=== PATIENT | male | born 1970 | race Caucasian/White ===

== ENCOUNTER 2023-11-15 11:46 | Outpatient (CLI) | payer OTHER, SELFPAY ==
[2023-11-15 12:05] LABS: Basophils Absolute Auto 0.04 K/mm3 (0.00-0.10); Basophils Percent Auto 0.4 % (0.0-1.0); Eosinophils Absolute Auto 0.15 K/mm3 (0.02-0.50); Eosinophils Percent Auto 1.6 % (1.0-6.0); Hematocrit 48.7 % (40.0-54.0); Hemoglobin 17.2 g/dL (14.0-18.0); Immature Granulocyte Absolute 0.05 K/mm3 (0.00-0.00); Immature Granulocyte Percent A 0.5 % (0.0-0.0); Lymphocytes Absolute Auto 3.19 K/mm3 (1.10-4.50); Lymphocytes Percent Auto 33.3 % (18.0-42.0); Mean Corpuscular HGB Conc 35.3 g/dL (32.0-36.0); Mean Corpuscular Hemoglobin 30.9 pg (27.0-31.0); Mean Corpuscular Volume 87.4 fL (78.0-102.0); Mean Platelet Volume 9.2 fl (8.7-11.0); Monocytes Absolute Auto 0.52 K/mm3 (0.10-0.90); Monocytes Percent Auto 5.4 % (2.0-11.0); Neutrophils Absolute Auto 5.6 K/mm3 (1.7-7.2); Neutrophils Percent Auto 58.8 % (50.0-70.0); Platelet Count Result 240 K/mm3 (150-420); Red Blood Count 5.57 M/mm3 (4.70-6.10); Red Cell Distribution Width 12.9 % (11.6-14.4); White Blood Count 9.6 K/mm3 (4.8-10.8)
[2023-11-15 12:10] LABS: Appearance Urine Clear (Clear); Bilirubin Urine Negative (Negative); Blood Urine Negative (Negative); Color Urine Yellow (Yellow); Glucose Urine UA Negative (Negative); Ketones Urine Negative (Negative); Leukocyte Esterase Ur Negative (Negative); Nitrate Urine Negative (Negative); Protein Urine 1+ (Negative); Specific Grav Ur >= 1.030 (1.010-1.020); Urobilinogen Urine 0.2 mg/dL (0.2-1.0)
[2023-11-15 12:16] LABS: Add Urine Microscopic? YES; RBC Urine None seen /hpf (0-2); WBC Urine None seen /hpf (0-3)
[2023-11-15 12:17] LABS: Bacteria Urine Rare /hpf
[2023-11-15 12:54] LABS: Albumin Level 3.5 g/dL (3.4-5.0); Alkaline Phosphatase 72 U/L (46-116); Anion Gap 10 mmol/L (8-16); Blood Urea Nitrogen 16 mg/dL (7-18); Calcium 7.5 mg/dL (8.5-10.1); Carbon Dioxide 27 mmol/L (21-32); Chloride 91 mmol/L (98-108); Cholesterol 437 mg/dL (0-200); Estimated Glomerular Filt Rate > 60; Glucose 282 mg/dL (70-99); HDL Direct 33 mg/dL (40-60); Osmolality Calculated 277 mOsm/kg (285-295); Potassium 4.4 mmol/L (3.5-5.1); Prostate Specific Antigen 1.1 ng/mL (< OR = 4.0); Sodium 128 mmol/L (136-145); Total Protein 7.3 g/dL (6.4-8.2)
[2023-11-15 13:35] LABS: Hemoglobin A1C 8.6 % (<5.7)
[2023-11-15 14:44] LABS: LDL Cholesterol Calculated 204 mg/dL (<130)
[2023-11-15 14:45] LABS: GGT 66 U/L (15-85)
[2023-11-15 14:48] LABS: Triglycerides > 1000 mg/dL (0-150)
[2023-11-16 11:04] LABS: Alanine Aminotransferase 26 U/L (16-63); Aspartate Amino Transferase 22 U/L (15-37)
== END 2023-11-15 11:47 | disposition home or self-care (01) ==
LOC: CHSLAB 11:53
PROVIDERS: PCP Internal Medicine; Visit Provider Internal Medicine
DX: E78.2 Mixed hyperlipidemia (principal); I10 Essential (primary) hypertension; E11.65 Type 2 diabetes mellitus with hyperglycemia; F10.280 Alcohol dependence with alcohol-induced anxiety disorder; Z12.5 Encounter for screening for malignant neoplasm of prostate
CPT/HCPCS: 36415; 80053; 80061; 81001; 82977; 83036; 84153; 85025; G0103

== ENCOUNTER 2025-05-01 02:47 | Day surgery (SDC) | payer BC, SELFPAY ==
[2025-04-09 10:43] VITALS: BMI 30.5
--- OUTSIDE RECORDS SUMMARY | 2025-05-01 02:50 | XMS_ITS | Clinical Summary ---
Author Organization [facility] Address Formerly [facility] [place] [address] Care Team Providers Care Farmworker Cranberry Name Role Phone Kaveh Zavala MD Primary Care Provider [phone] Allergies No known active allergies Medications metFORMIN 1000 MG tablet Take 1,000 mg by mouth 2 (two) times daily with meals. Active atorvastatin 80 MG tablet Take 80 mg by mouth nightly at bedtime. Active Leona-3 Fatty Acids (FISH OIL) 500 MG capsule Take 500 mg by mouth daily. Active Active Problems Problem Noted Date Diagnosed Date Hypertriglyceridemia 07/06/2021 Type 2 diabetes mellitus wit hout complication, unspecified whether custodial insulin use ([facility]) 07/06/2021 Pancreatitis ([facility]) 07/06/2021 Acute pancreatitis ([facility]) 07/04/2021 Hypertension 07/04/2021 Resolved Problems Problem Noted Date Diagnosed Date Resolved Date Alcohol use 07/04/2021 07/27/2022 Family History Medical History Relation Comments Cancer Father Diabetes Mother Relation Status Comments Father Mother Social History Tobacco Use Types Packs/Day Years Used Date Smoking Tobacco: Every Day Cigarettes Smokeless Tobacco: Never Alcohol Use Standard Drinks/Week Comments Yes 40 (1 standard drink = 0.6 oz pu re alcohol) per wk Sex and Gender Information Value Date Recorded Sex Assigned at Not on file 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 Gender Identity Not on file Sexual Orientation Not on file Last Filed Vital Signs Vital Sign Reading Time Taken Comments Blood Pressure 137/74 07/11/2021 9:30 AM CDT Pulse 70 07/11/2021 5:15 AM CDT Temperature 36.3 C (97.4 F) 07/11/2021 5:15 AM CDT Respiratory Rate 25 07/11/2021 5:15 AM CDT Oxygen Saturation 100% 07/11/2021 9:30 AM CDT Inhaled Oxygen Concentration - - Weight 101.6 kg (224 lb) 07/11/2021 5:15 AM CDT Height 182.9 cm (6') 07/11/2021 5:15 AM CDT Body Mass Index 30.38 07/11/2021 5:15 AM CDT Plan of Treatment Health Maintenance Due Date Last Done Comments Colorectal Cancer Screening Colonoscopy (10 Years) 1972 Kidney Health Evaluation 1972 Hemoglobin A1C 1972 Annual Physical 1975 Diabetes: Retinopathy Eye Exam 1990 Hepatitis C 1990 DTaP, Tdap and Td Vaccines (1 - Tdap) 1991 Hepatitis B Vaccines (1 of 3 - 19+ 3-dose series) 1991 Pneumococcal Vaccine: 50+ Years (1 of 2 - PCV) 1991 Lipid Panel 07/06/2022 07/06/2021, 06/25, 07/05/2021, Additional history exists Zoster Vaccines (1 of 2) 2022 COVID-19 Vaccine ( season) 2024 Meningococcal B Vaccine Aged Out No l onger eligible based on patient's age to complete this topic Meningococcal Vaccine Aged Out No angelika carolina eligible based on patient's age to complete this topic RSV Immunizations Under 20 Months Aged Out No longer eligible based on patient's age to complete this topic Goals Goal Patient Goal Type Associated Problems Recent Progress Patient-Stated? 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 RESULT MAY BE AFFECTED. THE NATIONAL LIPID ASSOCIATION AND THE NATIONAL CHOLESTEROL EDUCATION PROGRAM (NCEP) HAVE SET THE FOLLOWING GUIDELINES FOR TOTAL CHOLESTEROL IN ADULTS AGES 18 AND UP. DESIRABLE: <200 BORDERLINE HIGH: 200-239 HIGH: > OR = 240 TRIGLYCERIDES 1,940(H) <150 MG/DL 07/06/2021 8:00 AM CDT [facility] Comment: MILD ICTERUS. RESULT MAY BE AFFECTED. THE NATIONAL LIPID ASSOCIATION AND THE NATIONAL CHOLESTEROL EDUCATION PROGAM (NCEP) HAVE SET THE FOLLOWING GUIDELINES FOR TRIGLYCERIDES IN ADULTS AGES 18 AND UP. NORMAL: <150 BORDERLINE HIGH: 150 TO 199 HIGH: 200 TO 499 VERY HIGH: >499 HDL 14(L) >39 MG/DL 07/06/2021 8:00 AM CDT [facility] Comment: THE NATIONAL LIPID ASSOCIATION AND THE NATIONAL CHOLESTEROL EDUCATION PROGAM (NCEP) HAVE SET THE FOLLOWING GUIDELINES FOR HDL CHOLESTEROL IN ADULTS AGES 18 AND UP. MALES: >39 FEMALES: >49 LDL (CALCULATED) TRIGLYCERIDES >400 MG/DL, SEE DIRECT LDL REPORT <100 MG/DL 07/06/2021 8:00 AM CDT [facility] Comment: THE NATIONAL LIPID ASSOCIATION AND THE NATIONAL CHOLESTEROL EDUCATION PROGAM (NCEP) HAVE SET THE FOLLOWING GUIDELINES FOR LDL CHOLESTEROL IN ADULTS AGES 18 AND UP. DESIRABLE: <100 ABOVE DESIRABLE: 100 TO 129 BORDERLINE HIGH: 130 TO 159 HIGH: 160 TO 189 VERY HIGH: >189 VLDL CALCULATION CALCULATION NOT VALID, TRIG >400 MG/DL 07/06/2021 8:00 AM CDT [facility] Comment:REFERENCE RANGE NOT ESTABLISHED CHOL/HDL RATIO 24.1 07/06/2021 8:00 AM CDT [facility] Comment:REFERENCE RANGE NOT ESTABLISHED LDL/HDL CALCULATION NOT VALID, TRIG >400 07/06/2021 8:00 AM T [facility] Comment:REFERENCE RANGE NOT ESTABLISHED NON HDL CHOLESTEROL 324 MG/DL 07/06/2021 8:00 AM T [facility] Comment:REFERENCE RANGE NOT ESTABLISHED 07/06/2021 5:15 AM CDT Lili Davidson NP LABORATORY Final Result [facility] [address] [place] [address], from Last 3 Months or Most Recently Relevant to Health Maintenance Insurance [facility] Advance Directives * Full Code (Latest Code Status on File) Date Activated Date Inactivated Comments 07/07/2021 1:04 PM 07/10/2021 1:20 PM * Full Code Date Activated Date Inactivated Comments 07/04/2021 2:49 AM 07/06/2021 8:00 PM Care Teams Farmworker Cranberry Relationship Specialty Start Date End Date Kaveh Zavala MD [address] [place] [phone] PCP - General FAMILY PRACTICE 07/03/21
--- OUTSIDE RECORDS SUMMARY | 2025-05-01 02:50 | XMS_ITS | Encounter Summary ---
Author Organization [facility] Address [address] [place] [address] Care Team Providers Care Electrical Helper Name Role Phone Kaveh Zavala MD Primary Care Provider [phone] Encounter Details Date Type Department Care Team (Late st Contact Info) Description 07/11/2021 Hospital Follow-up Call [facility] [address] [place] [address] Kaye Vergara RN Social History Tobacco Use Types Packs/Day Years Used Date Smoking Tobacco: Every Day Cigarettes Smokeless Tobacco: Never Alcohol Use Standard Drinks/Week Comments Yes 40 (1 standard drink = 0.6 oz pu re alcohol) per wk Sex and Gender Information Value Date Recorded Sex Assigned at Not on file 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 No / Unsure 07/11/2021 5:12 AM CDT documented as of this encounter Functional Status * RETIRED Are you deaf or do you have serious difficulty hearing Answer Date of Assessment Author Status No 07/06/2021 9:06 PM CDT Activ e * RETIRED Are you blind or do you have serious difficulty seeing, even when wearing glasses? Answer Date of Assessment Author Status No 07/06/2021 9:06 PM CDT Activ e * Do you have serious difficulty walking or climbing stairs? Answer Date of Assessment Author Status No 07/06/2021 9:06 PM CDT Amanda Warner RN Active * Do you have difficulty dressing or bathing? Answer Date of Assessment Author Status No 07/06/2021 9:06 PM Amanda Roblero RN Active * Because of a physical, mental, or emotional condition, do you have difficulty doing errands alone such as visiting a doctor's office or shopping? Answer Date of Assessment Author Status No 07/06/2021 9:06 PM Amanda Roblero RN Active * Calculated C-SSRS Risk Score (Lifetime/Recent) Answer Date of Assessment Author Status No Risk Indicated 07/11/2021 5:13 AM Pooja Laurent RN Active * Clinch Suicide Severity Rating Scale (Screener/Recent Self-Report) Question Answer Date of Assessment Author Status 1. Wish to be (Past 1 Month) No 07/11/2021 5:13 AM Magda Laurent RN Acti ve 2. Non-Specific Active Suicidal Thoughts (Past 1 Month) No 07/11/2021 5:13 AM Magda Laurent RN Acti ve 6. Suicidal Behavior (Lifetime) No 07/11/2021 5:13 AM Magda Laurent RN Acti ve documented as of this encounter Mental Status * Because of a physical, mental, or emotional condition, do you have serious difficulty concentrating, remembering, or making decisions? Answer Entry Date Author Status No 07/06/2021 9:06 PM Amanda Roblero RN Active documented in this encounter Plan of Treatment Not on file documented as of this encounter Goals Goal Patient Goal Type Associated Problems Recent Progress Patient-Stated? Author Safety Patient/family will have appropriate support at home upon discharge General No Luciana Padron RN documented as of this encounter Visit Diagnoses Not on filedocumented in this encounter Care Teams Electrical Helper Relationship Specialty Start Date End Date Kaveh Zavala MD [address] [place] [phone] PCP - General FAMILY PRACTICE 07/03/21 documented as of this encounter
[2025-05-01 08:10] VITALS: BP 146/92; PULSE 75; RESP 18; TEMP 36.8; O2SAT 98
[2025-05-01] MEDS: LACTATED RINGERS 1,000 ML 150 ML IV CONT (08:31)
--- NOTE | 2025-05-01 08:58 | P.PNAN_ITS ---
Anes - Initial Pre Proc Eval Procedure: Operation Date: 05/01/25 09:30 Proposed Procedures p Screening Colonoscopy - Davin Vazquez DO Date/Time: 05/01/25 08:58 Surgeon: Davin Vazquez DO Pre Op Diagnosis: Screening for malignant neoplasm of colon Patient Data Age: 54 Gender: M Height: 1.83 m Weight: 104.7 kg Last Vital Signs Temp 98.2 F 05/01/25 08:10 Pulse 75 05/01/25 08:10 Resp 18 05/01/25 08:10 BP 146/92 H 05/01/25 08:10 Pulse Ox 98 05/01/25 08:10 O2 Del Method Room Air 05/01/25 08:10 Allergies Allergy/AdvReac Type Severity Reaction Status Date / Time No Known Allergies Allergy Verified 05/01/25 08:09 Home Medications ?Medication ?Instructions ?Recorded ?Confirmed ?Type amlodipine 5 mg tablet 5 mg PO DAILY 04/09/25 05/01/25 History atorvastatin 80 mg tablet 80 mg PO DAILY 04/09/25 04/09/25 History fenofibrate 160 mg tablet 160 mg PO DAILY 04/09/25 05/01/25 History folic acid 1 mg tablet 1 mg PO DAILY 04/09/25 05/01/25 History glimepiride 4 mg tablet 4 mg PO DAILY 04/09/25 04/09/25 History metformin 500 mg tablet,extended 2,000 mg PO DAILY 04/09/25 04/09/25 History release 24 hr Laboratory Tests 05/01/25 08:28 POC Capillary Glucose 193 H mg/dl (65-105) Patient hx anesthesia problems: none Family hx anesthesia problems: none Results Review: All pre-operative results and documents have been reviewed as part of the pre- operative evaluation. [facility] Social History Social History Years smoked: 20 Smoking status: Current every day smoker Tobacco type: cigarettes Alcohol intake: current Drinks per week: 5 Substance use: current Substance use type: marijuana Other substance usage details: on occasion Last use: 2 weeks ago from 04/09 Living arrangements: with family Spiritual care concerns: No Anes - Eval Final PreProcedure Day of Procedure 05/01/25 08:58 Patient weight: obese Lungs: normal air movement Airway: Mallampati scale class II Neurological: alert and oriented Last oral intake: >/= 8 hours ASA classification: III Emergent: no Anesthetic plan: proceed Anesthesia type and monitoring: general GIVS and standard monitoring Results Review: All pre-operative results and documents have been reviewed as part of the pre- operative evaluation. HTN, hyperlipidemia, DM fsbs 193, obesity, smoker 1 ppd and did smoke this am approx 7 am (2 cigs). 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 Informed Consent: The patient's anesthetic plan and its attendant risks and benefits were discussed with the patient/family/POA. Questions were solicited and answers provided to the satisfaction of the patient/family/POA.
--- NOTE | 2025-05-01 09:38 | PM.IMHP ---
H&P: HPI History of Present Illness Date/Time: 05/01/25 09:38 Chief Complaint: screening for colorectal cancer Narrative: this is a 54-year-old man who presents for his 1st colonoscopy. He denies any hematochezia or melena. He denies any family history of colon cancer. Review of Systems Review of Systems: All systems reviewed & are unremarkable except as noted in HPI and below Constitutional: Constitutional: Denies chills, Denies fever(s), Denies headache(s) and Denies weight loss Eyes: Eyes: Denies change in vision ENT: Denies dizziness, Denies headache(s), Denies neck mass and Denies throat swelling Cardiovascular: Cardiovascular: Denies chest pain, Denies lightheadedness and Denies dyspnea Respiratory: Respiratory: Denies cough, Denies dyspnea and Denies wheezing Gastrointestinal: Gastrointestinal: Denies abdominal pain, Denies change in bowel habits, Denies nausea and Denies vomiting Genitourinary: Genitourinary: Denies hematuria and Denies dysuria Musculoskeletal: Musculoskeletal: Reports as per HPI Integumentary/Breasts: Skin/Breast: Reports as per HPI Neurologic: Denies dizziness and Denies headache(s) Allergic/Immunologic: Allergic/Immunologic: Denies throat swelling and Denies wheezing [facility] Social History Social History Years smoked: 20 Smoking status: Current every day smoker Tobacco type: cigarettes Alcohol intake: current Drinks per week: 5 Substance use: current Substance use type: marijuana Other substance usage details: on occasion Last use: 2 weeks ago from 04/09 Living arrangements: with family Spiritual care concerns: No Meds Home Medications and Allergies Home Medications ?Medication ?Instructions ?Recorded ?Confirmed ?Type amlodipine 5 mg tablet 5 mg PO DAILY 04/09/25 05/01/25 History atorvastatin 80 mg tablet 80 mg PO DAILY 04/09/25 04/09/25 History fenofibrate 160 mg tablet 160 mg PO DAILY 04/09/25 05/01/25 History folic acid 1 mg tablet 1 mg PO DAILY 04/09/25 05/01/25 History glimepiride 4 mg tablet 4 mg PO DAILY 04/09/25 04/09/25 History metformin 500 mg tablet,extended 2,000 mg PO DAILY 04/09/25 04/09/25 History release 24 hr Allergies Allergy/AdvReac Type Severity Reaction Status Date / Time No Known Allergies Allergy Verified 05/01/25 08:09 Vital Signs Vital Signs - 24 hr 05/01/25 08:10 Temperature 98.2 F Pulse Rate 75 Respiratory Rate 18 Blood Pressure 146/92 H Pulse Oximetry 98 Oxygen Delivery Room Air Exam Const: General: no acute distress and alert Orientation/consciousness: patient oriented x3 HENMT: Head: normocephalic and atraumatic Ears: hearing grossly normal bilaterally Face/Nose/Sinus: Normal nares present Mouth: Yes Normal oral and palatal mucosa present Eyes: Periorbital: periorbital findings normal Sclera: sclerae normal EOM: EOMs intact bilaterally Neck: Neck: normal visual inspection, no lymphadenopathy and trachea midline Chest: Chest palpation & inspection: normal inspection of the chest Resp: Effort & Inspection: normal respiratory effort Auscultation: clear to auscultation bilaterally Cardio: Jugular venous distension: no JVD Rate: regular rate Rhythm: regular rhythm Heart sounds: S1 normal heart sound present and S2 normal heart sound present Peripheral pulses: Peripheral pulses 2+ throughout GI: Inspection: normal to inspection GI Palp: Yes Soft to palpation, No Tenderness to palpation present (GI), No Guarding due to palpation present (GI) and No Rebound tenderness present Percussion: Yes normal to percussion Auscultation: normal bowel sounds : General: Yes no CVA tenderness Back/Spine/Pelvis: Back: no CVA tenderness Neuro: General: patient oriented x3, no focal motor deficits and CN's II-XI intact bilaterally Cognition (Neuro): normal cognition Speech: normal speech Motor exam (neuro): 5/5 motor strength present throughout Extrem: General: capillary refill normal and no clubbing, cyanosis or edema Assessment and Plan Assessment and plan (1) Screening for colorectal cancer: Code(s): Z12.11 - Encounter for screening for malignant neoplasm of colon; Z12.12 - Encounter for screening for malignant neoplasm of rectum Status: Acute Assessment and Plan: I have recommended colonoscopy. I have discussed the procedure, risks, benefits, and alternatives. Questions were answered. Patient is agreeable to proceed.
--- NOTE | 2025-05-01 09:57 | S_PTH ---
PATIENT: Kai Chu LOC: [facility] U#:[id number] AGE/SX: 54/M ROOM: RE05/01/[address]: Davin Vazquez DO : 1970 BED: DIS: 05/01/2025 SPEC #: [id number] RECD: 05/01/25 10:45 STATUS: SUNNY REQ #: [id number] IRIS: 05/01/25 09:[address]: Davin Vazquez DEPT: [facility] Surgical RECD BY: Emerald Vidal ENTERED: 05/01/25 10:46 SP TYPE: Surgical OTHR DR: Odilon Guerra MD Tissues: A - Rectal Polyp Procedures: Hematoxylin and Eosin Stain Gross and Microscopic Level 4
[2025-05-01 10:00] VITALS: BP 110/71; PULSE 68; RESP 20; O2SAT 95
[2025-05-01 10:10] VITALS: BP 123/85; PULSE 65; RESP 20; O2SAT 98
[2025-05-01 10:20] VITALS: BP 127/89; PULSE 61; RESP 15; O2SAT 97
== END 2025-05-01 10:36 | disposition home or self-care (01) ==
PROVIDERS: PCP Internal Medicine; Visit Provider Surgery
PROC: 0DJD8ZZ Inspection of Lower Intestinal Tract, Via Natural or Artificial Opening Endoscopic (ICD-10-PCS; CPT 45378; principal; 2025-05-01 09:30)
DX: Z12.11 Encounter for screening for malignant neoplasm of colon (principal); D12.8 Benign neoplasm of rectum; K57.30 Diverticulosis of large intestine without perforation or abscess without bleeding; I10 Essential (primary) hypertension; E78.5 Hyperlipidemia, unspecified; E11.9 Type 2 diabetes mellitus without complications; F17.210 Nicotine dependence, cigarettes, uncomplicated; F12.90 Cannabis use, unspecified, uncomplicated; E66.9 Obesity, unspecified; Z68.31 Body mass index [BMI] 31.0-31.9, adult; Z79.84 Long term (current) use of oral hypoglycemic drugs
CPT/HCPCS: 45385; 82948; 88305; J2003; J2704; J7120